=== PATIENT | female | born 1945 | race Two or more races ===

== ENCOUNTER 2022-06-29 12:37 | Outpatient (RCR) | payer OTHER, SELFPAY | END 2022-09-10 15:00 | disposition home or self-care (01) | LOC: HO.WCC 12:37 | PROVIDERS: Visit Provider Physician Assistant | DX: T24.211A Burn of second degree of right thigh, initial encounter (principal); C7B.02 Secondary carcinoid tumors of liver; D63.8 Anemia in other chronic diseases classified elsewhere; I10 Essential (primary) hypertension; I48.91 Unspecified atrial fibrillation; E11.9 Type 2 diabetes mellitus without complications; T31.0 Burns involving less than 10% of body surface; Z86.73 Personal history of transient ischemic attack (TIA), and cerebral infarction without residual deficits; Z87.891 Personal history of nicotine dependence | CPT/HCPCS: 11042; 16020; 16025; 97605 ==